=== PATIENT | female | born 1950 ===

== ENCOUNTER → 2020-12-02 13:22 | Outpatient (CLI) | payer MEDICARE, SELFPAY ==
[2020-12-02] MEDS: COVID-19 VACC(MODERNA-1)/PF 100 MCG/0.5 ML VIAL IM (13:28)
== END ==
PROVIDERS: Visit Provider Internal Medicine
DX: Z23 Encounter for immunization (principal)
CPT/HCPCS: 0011A; 91301

== ENCOUNTER → 2020-12-30 13:26 | Outpatient (CLI) | payer MEDICARE, SELFPAY ==
[2020-12-30] MEDS: COVID-19 VACC #2, MRNA(MOD) 100 MCG/0.5 ML VIAL IM (13:32)
== END ==
PROVIDERS: Visit Provider Internal Medicine
DX: Z23 Encounter for immunization (principal)
CPT/HCPCS: 0012A; 91301